=== PATIENT | female | born 1995 ===

== ENCOUNTER 2022-09-02 09:35 | Day surgery (SDC) | payer OTHER ==
[~2022-09-02] VITALS: Ht 162.6 cm; Wt 68.0 kg
== END 2022-09-02 17:10 | disposition home or self-care (01) ==
LOC: CIR.AMB 09:35
PROVIDERS: ATTEND Colon & Rectal Surgery
DX: K64.4 Residual hemorrhoidal skin tags (principal); K63.5 Polyp of colon; L91.0 Hypertrophic scar; K59.00 Constipation, unspecified; Z86.16 Personal history of COVID-19